=== PATIENT | female | born 1995 | race Caucasian/White ===

== ENCOUNTER 2021-12-22 17:45 | Inpatient (IN) | payer OTHER ==
[~2021-12-22] VITALS: Ht 157.5 cm; Wt 46.3 kg
[2021-12-22] MEDS ORDERED: INSHUMSS SUBCUT (17:56)
[2021-12-22] MEDS ORDERED: INSU100I24 SQ (17:56)
[2021-12-22] MEDS ORDERED: SODIUM CHLORIDE 0.9% 1,000 ML IV ONE ×3 (18:00→19:45)
[2021-12-22] MEDS ORDERED: ONDANSETRON HCL 4MG/2ML INJ IV STA (18:01)
[2021-12-22 18:32] LABS: BASOPHILS % 0.8 % (0.0-2.0); HEMATOCRIT. 48.5 % (36.0-48.0); HEMOGLOBIN. 12.4 g/dL (12.0-16.0); LYMPHOCYTES % 12.4 % (20.0-50.0); MEAN CORPUSCULAR HEMOGLOBIN 26.7 pg (28.0-32.0); MEAN PLATELET VOLUME 10.8 fl (7.4-10.4); MONOCYTES % 5.9 % (2.0-8.0); NEUTROPHILS % 80.9 % (40.0-76.0); PLATELET 496 x1000/uL (130-400); RED BLOOD CELL COUNT 4.62 mill/uL (4.2-5.4); RED CELL DISTRIBUTION WIDTH 17.2 % (11.6-14.6)
[2021-12-22 18:41] LABS: CHLORIDE 70 mEq/L (98-107); HCG SCREEN NEGATIVE
[2021-12-22 18:44] LABS: ETHANOL BLOOD < 10 mg/dL
[2021-12-22 20:01] LABS: CLARITY URINE CLEAR (CLEAR); COLOR URINE YELLOW (YELLOW); KETONES URINE 2+ (NEGATIVE); LEUKOCYTE ESTERASE URINE NEGATIVE (NEGATIVE); NITRITE URINE NEGATIVE (NEGATIVE); OCCULT BLOOD URINE TRACE (NEGATIVE); PROTEIN URINE 1+ (NEGATIVE); SPECIFIC GRAVITY URINE 1.026 (1.005-1.030); UROBILINOGEN URINE 0.2 E.U./dL (0.2-1.0)
[2021-12-22] MEDS ORDERED: INSULIN REGULAR (DRIP) 100 UNITS in SODIUM CHLORIDE 0.9% 99 ML IV NR (20:30)
[2021-12-22 20:50] LABS: *AMPHETAMINES SCREEN URINE NEGATIVE (NEGATIVE); *BARBITURATES SCREEN URINE NEGATIVE (NEGATIVE); *BENZODIAZEPINES SCREEN URINE NEGATIVE (NEGATIVE); *COCAINE SCREEN URINE NEGATIVE (NEGATIVE); METHADONE URINE SCREEN NEGATIVE (NEGATIVE)
[2021-12-22 20:51] LABS: CANNABINOID URINE SCREEN NEGATIVE (NEGATIVE); OPIATES URINE SCREEN NEGATIVE (NEGATIVE); PHENCYCLIDINE URINE SCREEN NEGATIVE (NEGATIVE)
[2021-12-22] MEDS ORDERED: LACTATED RINGERS 1,000 ML IV STA (21:40)
[2021-12-22 21:45] LABS: BETA HYDROXYBUTYRATE 15.6 mMol/L (0.0-0.3)
[2021-12-22] MEDS ORDERED: CEFTRIAXONE 1 G PREMIX 50 ML IV ONE (22:30)
[2021-12-22 23:31] LABS: PHOSPHORUS 6.5 mg/dL (2.5-4.9)
[2021-12-23] MEDS ORDERED: SODIUM CHL 0.45% + KCL 20MEQ/L 1,000 ML IV STA (01:25)
[2021-12-23] MEDS ORDERED: DEXTROSE 50% WATER 50ML SYRINGE IV PRN ×3 (01:30→12:15)
[2021-12-23] MEDS ORDERED: INSULIN REGULAR 100U/100ML PMX 100 ML IV SCH (01:30)
[2021-12-23] MEDS ORDERED: BLOOD SUGAR DIAGNOSTIC STRIP TEST SCH (02:00)
[2021-12-23 12:00] VITALS: BP 124/76
[2021-12-23] MEDS ORDERED: POTASSIUM CHLORIDE 20MEQ TABLET SR PO NR (12:30)
[2021-12-23] MEDS: BLOOD SUGAR DIAGNOSTIC STRIP TEST SCH ×2 (13:15→17:17)
[2021-12-23] MEDS: INSULIN LISPRO 100 UNITS/ML SUBCUT SCH ×2 (13:25→17:17)
[2021-12-23] MEDS ORDERED: INSULIN GLARGINE UD 100 UNITS/ML SYR SUBCUT NR (14:00)
[2021-12-23 14:04] VITALS: BP 101/64
[2021-12-23 16:00] VITALS: BP 108/67
[2021-12-23 16:55] VITALS: BP 110/66
== END 2021-12-23 18:00 | disposition home or self-care (01) | DRG 420 ==
LOC: ER 17:45 → MICUSO 22:21 → EDBEDREQTM 22:27 → EDBEDREQ 22:27 → 5EST 12-23 11:15
PROVIDERS: ADMIT Internal Medicine; ATTEND Internal Medicine
DX: E11.10 Type 2 diabetes mellitus with ketoacidosis without coma (principal); N17.0 Acute kidney failure with tubular necrosis; R65.11 Systemic inflammatory response syndrome (SIRS) of non-infectious origin with acute organ dysfunction; E87.8 Other disorders of electrolyte and fluid balance, not elsewhere classified; E87.1 Hypo-osmolality and hyponatremia; D72.829 Elevated white blood cell count, unspecified; E87.5 Hyperkalemia; R11.2 Nausea with vomiting, unspecified; Z20.822 Contact with and (suspected) exposure to COVID-19; F17.200 Nicotine dependence, unspecified, uncomplicated; Z79.4 Long term (current) use of insulin; R74.01 Elevation of levels of liver transaminase levels
CPT/HCPCS: 36415; 71045; 80048; 80053; 80305; 80320; 81003; 82010; 82962; 83735; 84100; 84703; 85025; 87426; 93005; 99291; J0696; J1815; J2405; J3480; J7030; J7050; J7120; G0480